=== PATIENT | male | born 1975 | race Caucasian/White ===

== ENCOUNTER 2017-07-23 16:45 | Emergency (ER) | payer SELFPAY ==
[~2017-07-23] VITALS: Ht 177.8 cm; Wt 68.0 kg
[2017-07-23 16:51] VITALS: BP 133/71; PULSE 84; RESP 20; TEMP 98.3; O2SAT 100
[2017-07-23] MEDS ORDERED: MORPHINE SULFATE 4 MG/ML INJ IV PUSH ONE (17:45)
--- NOTE | 2017-07-23 18:03 | PD ---
HPI Chief Complaint: Injury Time Seen by Provider: 17:36 Travel History International Travel<30 days: No Contact w/Intl Traveler<30days: No Traveled to known affect area: No History of Present Illness HPI Patient is a 41-year-old male presenting to emerge department for evaluation of a puncture wound to his left hand. Patient states he was screwing into a piece of wood when the screw went through his hand to the head of the screw. He then removed it with his drill. Patient denies any numbness or weakness in his hand , he denies any loss of function. His last tetanus vaccine was less than 5 years ago. Patient reports his pain is 10 out of 10, he states is throbbing in nature, constant. Pain is worse with movement. Symptom onset was sudden, symptoms are moderate in nature. There are no alleviating factors at this point. [facility] Past Medical History Medical History: Denies Significant Hx Musculoskeletal: Yes (herniated disk) Tetanus Vaccination: < 5 Years Influenza Vaccination: No Past Surgical History Other Surgery: Yes (skin graft ) Social History Alcohol Use: No Tobacco Use: Yes (1 ppd) Substance Use: No Allergies-Medications (Allergen,Severity, Reaction): Coded Allergies: No Known Allergies (Unverified , 07/23/17) Reported Meds & Prescriptions Reported Meds & Active Scripts Active No Active Prescriptions or Reported Medications Review of Systems Except as stated in HPI: all other systems reviewed are Neg Musculoskeletal: Positive: Edema, Pain Skin: Positive Change in Pigmentation, Positive Other (Puncture wound) Physical Exam Narrative GENERAL: Well-developed, well-nourished, alert male. Presenting in no acute distress. SKIN: Warm and dry. 0.5 centimeter puncture wound to the palmar aspect of the left hand in between the fourth and fifth MCP. Mild edema and ecchymosis to the dorsal aspect of the left hand between the fourth and fifth MCP. HEAD: Atraumatic. Normocephalic. EYES: Pupils equal and round. No scleral icterus. No injection or drainage. ENT: No nasal bleeding or discharge. Mucous membranes pink and moist. NECK: Trachea midline. No JVD. CARDIOVASCULAR: Regular rate and rhythm. RESPIRATORY: No accessory muscle use. Clear to auscultation. Breath sounds equal bilaterally. GASTROINTESTINAL: Abdomen soft, non-tender, nondistended. Hepatic and splenic margins not palpable. MUSCULOSKELETAL: Extremities without clubbing, cyanosis, or edema. No obvious deformities. 2+ radial pulse. Brisk less than 3 second capillary refill in all digits. NEUROLOGICAL: Awake and alert. No obvious cranial nerve deficits. Motor grossly within normal limits. Five out of 5 muscle strength in the arms and legs. Normal speech. PSYCHIATRIC: Appropriate mood and affect; insight and judgment normal. Data Data Last Documented VS Vital Signs Date Time Temp Pulse Resp B/P (MAP) Pulse Ox O2 Delivery O2 Flow Rate FiO2 07/23/17 16:51 98.3 84 20 133/71 (91) 100 Orders Orders Hand, Complete ([id number]) (07/23/17 ) Iv Access Insert/Monitor (07/23/17 17:43) Morphine Inj (Morphine Inj) (07/23/17 17:45) Wound Care (07/23/17 17:43) MDM Medical Decision Making Medical Screen Exam Complete: Yes Emergency Medical Condition: Yes Interpretation(s) Last Impressions Hand X-Ray 07/23/17 0000 Signed Impressions: CONCLUSION: Negative examination Vital Signs Date Time Temp Pulse Resp B/P (MAP) Pulse Ox O2 Delivery O2 Flow Rate FiO2 07/23/17 16:51 98.3 84 20 133/71 (91) 100 Differential Diagnosis Retained foreign body versus puncture wound versus fracture versus tendon injury versus other Narrative Course Patient is a 41-year-old male presenting to the emergency department for evaluation of a puncture wound to his left hand from a screw. Patient has a screw with him and the screw is intact however he was drilling into wood and is concerned for what fragments being left in his hand. X-rays ordered and pending. Medications ordered for pain. Tetanus vaccine is up-to-date. Patient 's wound was irrigated, it was also soaked in Betadine solution. X-ray is negative for bony abnormality or retained foreign body. Patient will be discharged on Keflex prophylactically. Bleeding is controlled. Patient was advised on signs and symptoms of infection. He was advised to return to emergency department for any new or worsening symptoms. Patient verbalized understanding of these instructions. Patient stable for discharge. Diagnosis Primary Impression: Puncture wound Referrals: Primary Care Physician Patient Instructions: General Instructions, Puncture Wound (ED) Additional Instructions: Return to emergency department immediately for any signs or symptoms of infection Complete full course of antibiotics as prescribed Do not drive or operate machinery while taking narcotic pain medication Follow-up with your primary doctor Med/Other Pt SpecificInfo: Prescription(s) given Scripts Oxycodone-Acetaminophen (Percocet) 5-325 mg Tab 1 TAB PO Q6H Y for PAIN, #12 TAB 0 Refills Prov: Dianna Brady 07/23/17 Cephalexin (Keflex) 500 Mg Cap 500 MG PO Q12H for Infection for 10 Days, #20 CAP 0 Refills Prov: Dianna Brady 07/23/17 Disposition: 01 DISCHARGE HOME Condition: Stable Dianna Brady July 23, 2017 18:03
--- NOTE | 2017-07-23 18:29 | RADRPT ---
EXAM DATE: 07/23/2017 6:26 PM EDT AGE/SEX: 41 years / Male INDICATIONS: Puncture wound to left hand. CLINICAL DATA: This is the patient's initial encounter. Patient reports that signs and symptoms have been present for 1 day and indicates a pain score of 8/10. MEDICAL/SURGICAL HISTORY: None. None. COMPARISON: . FINDINGS: Bony structures are intact and in normal alignment. Osseous density is normal. Soft tissues are unre markable. No radiopaque foreign bodies seen. CONCLUSION: Negative examination Electronically signed by: Parish Byrd MD 07/23/2017 6:28 PM EDT
[2017-07-23] MEDS ORDERED: CEPH-460 PO (18:37)
[2017-07-23] MEDS ORDERED: PERC5TAB12 PO (18:37)
== END 2017-07-23 19:14 | disposition home or self-care (01) ==
LOC: NEPD 16:45
DX: S61.432A Puncture wound without foreign body of left hand, initial encounter (principal); W26.8XXA Contact with other sharp object(s), not elsewhere classified, initial encounter; Y93.H3 Activity, building and construction
CPT/HCPCS: 73130; 96374; 99284; J2270